=== PATIENT | female | born 1995 | race Caucasian/White ===

== ENCOUNTER 2017-04-18 17:14 | Emergency (ER) | payer BC ==
--- NOTE | 2017-04-18 18:29 | ER Document Report ---
ED Flu Like - General Chief Complaint: cold Stated Complaint: COUGHING, STUFFY NOSE Time Seen by Provider: 04/18/17 18:06 Mode of Arrival: Ambulatory Information source: Patient Notes: 22-year-old female presents to ED for cough congested stuffy/runny nose, fatigue , she denies any fever. States she does have some difficulty breathing at times but none at this time. Lungs are clear respirations regular even. Speaks in full sentences alert and oriented. States she has had a cough and cold symptoms for 2 days. States she was told by her doctor that she can only take Tylenol as she is 34 weeks with her first child. Last menstrual period was in August due dates May 28, 2017. TRAVEL OUTSIDE OF THE [place] IN LAST 30 DAYS: No - HPI Onset: Other - 2 days Timing/Duration: Intermittent Quality of pain: Achy, Sharp Severity: Moderate Pain Level: 4 CO exposure: No Associated symptoms: Nonproductive cough, Rhinnorhea, Sinus pain/drainage. 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 denies: COPD, CVA Patient has suicidal ideation: No Patient has homicidal ideation: No - Past Medical History Cardiac Medical History: Reports: None Pulmonary Medical History: Reports: Hx Asthma, Hx Bronchitis, Hx Pneumonia EENT Medical History: Reports: None Neurological Medical History: Reports: None Endocrine Medical History: Reports: None Renal/ Medical History: Reports: None Malignancy Medical History: Reports: None GI Medical History: Reports: Hx Gastroesophageal Reflux Disease, Hx Colonoscopy , Hx Endoscopy Musculoskeltal Medical History: Reports Hx Arthritis, Reports Hx Musculoskeletal Deformity, Reports Hx Musculoskeletal Trauma Skin Medical History: Reports None Psychiatric Medical History: Reports: Hx Anxiety, Hx Depression Traumatic Medical History: Reports: None Infectious Medical History: Reports: None Past Surgical History: Reports: Hx Oral Surgery, Hx Orthopedic Surgery - Immunizations Immunizations up to date: Yes Hx Diphtheria, Pertussis, Tetanus Vaccination: Yes Review of Systems - Review of Systems Constitutional: Recent illness EENT: Nose discharge, Sinus pressure, Sinus discharge Cardiovascular: No symptoms reported Respiratory: Cough Gastrointestinal: No symptoms reported Genitourinary: No symptoms reported Female Genitourinary: Musculoskeletal: No symptoms reported Skin: No symptoms reported Hematologic/Lymphatic: No symptoms reported Neurological/Psychological: No symptoms reported -: Yes All other systems reviewed and negative Physical Exam - Vital signs Vitals: Temp Pulse Resp BP Pulse Ox 98.9 F 104 H 20 150/87 H 98 04/18/17 17:19 04/18/17 17:19 04/18/17 17:19 04/18/17 17:19 04/18/17 17:19 Interpretation: Normal - General General appearance: Appears well, Alert - HEENT Head: Normocephalic, Atraumatic Eyes: Normal Pupils: PERRL Ears: Normal External canal: Normal Tympanic membrane: Normal Sinus: Normal Nasal: Purulent discharge, Swelling Mouth/Lips: Normal Mucous membranes: Normal Pharynx: Post nasal drainage Neck: Normal - Respiratory Respiratory status: No respiratory distress Chest status: Nontender Breath sounds: Nonproductive cough Chest palpation: Normal - Cardiovascular Rhythm: Regular Heart sounds: Normal auscultation Murmur: No - Abdominal Inspection: Gravid female Distension: No distension Bowel sounds: Normal Tenderness: Nontender Organomegaly: No organomegaly - Back Back: Normal, Nontender - Extremities General upper extremity: Normal inspection, Nontender, Normal color, Normal ROM , Normal temperature General lower extremity: Normal inspection, Nontender, Normal color, Normal ROM , Normal temperature, Normal weight bearing. No: Parul's sign - Neurological Neuro grossly intact: Yes Cognition: Normal Orientation: AAOx4 Kite Coma Scale Eye Opening: Spontaneous Tomi Coma Scale Verbal: Oriented Kite Coma Scale Motor: Obeys Commands Tomi Coma Scale Total: 15 Speech: Normal Motor strength normal: LUE, RUE, LLE, RLE Sensory: Normal - Psychological Associated symptoms: Normal affect, Normal mood - Skin Skin Temperature: Warm Skin Moisture: Dry Skin Color: Normal Course - Re-evaluation Re-evalutation: 04/18/17 18:43 Assessment consistent with an upper respiratory infection. Patient has a runny nose cough congestion. Ears are clear has a history of ear tubes in the past. Also has a history of left knee surgery and wisdom teeth removal. Patient is 34 weeks is not able to take anything but Tylenol for her cold. Patient has called her [employer] concerning her call and inform the know she cannot take any cold medicine. Patient was instructed to use nasal saline nose spray to help with her cold symptoms. Patient was treated with Tylenol while in the emergency room for her discomfort. Patient instructed to follow-up with her primary doctor. Patient's heart tones were 147. - Vital Signs Vital signs: Temp Pulse Resp BP Pulse Ox 98.2 F 96 20 136/86 H 99 04/18/17 18:32 04/18/17 18:32 04/18/17 17:19 04/18/17 18:32 04/18/17 18:32 Discharge - Discharge Clinical Impression: URI (upper respiratory infection) Qualifiers: URI type: unspecified URI Qualified Code(s): J06.9 - Acute upper respiratory infection, unspecified Condition: Stable Disposition: HOME, SELF-CARE Additional Instructions: UPPER RESPIRATORY ILLNESS: You have a viral infection of the respiratory passages -- a "cold." This common infection causes nasal congestion, drainage, and often sore throat and cough. It is highly contagious. The disease usually lasts about 10 to 14 days. There is no "cure" for the viral infection -- it must run its course. If there is a complication, such as bacterial infection in the nose, sinuses, middle ear, or bronchial tubes, antibiotics may be required. The antibiotics won't affect the virus. Drink plenty of fluids. A humidifier may help. An expectorant medication or decongestant may make you more comfortable. Use acetaminophen or ibuprofen for fever or aches. See the doctor if fever persists over two days, if there is any significant worsening of your symptoms, or if you simply fail to improve as expected. COUGH-SUPPRESSANT & EXPECTORANT MEDICATION: You are to use a cough medication as needed for relief of symptoms. This medicine is a combination of an expectorant (to make the mucous thinner and more easily "coughed up") and a cough suppressant (to reduce the frequency of coughing). The cough-suppressant medicine is related to narcotics. You may experience mild nausea and sleepiness. Some patients who are very sensitive to narcotics may have stomach pain from this medicine. Taking the medicine with food reduces these side effects. Do not drive or work with machinery until you know how this medicine affects you. The expectorant should have no side effects. Iodine-containing expectorants (such as organidin) should not be taken by persons with active thyroid disease unless approved by your doctor. Call the doctor if you develop shortness of breath, hives, rash, itching, lightheadedness, or severe nausea and vomiting. USE OF ACETAMINOPHEN (Tylenol): Acetaminophen may be taken for pain relief or fever control. It's much safer than aspirin, offering a wider range of "safe" dosages. It is safe during . Some brand names are Tylenol, Panadol, Datril, Anacin 3, Tempra, and Liquiprin. Acetaminophen can be repeated every four hours. The following are maximum recommended dosages: >89 pounds or adults 650 mg to 900 mg Acetaminophen can be repeated every four hours. Maximum dose not to exceed 4000 mg a day. FOLLOW-UP CARE: If you have been referred to a physician for follow-up care, call the physician s office for an appointment as you were instructed or within the next two days. If you experience worsening or a significant change in your symptoms, notify the physician immediately or return to the Emergency Department at any time for re-evaluation. Referrals: [facility] [Provider Group] - Follow up as needed
[2017-04-18 18:32] VITALS: BP 136/86
[2017-04-18] MEDS ORDERED: ACETAMINOPHEN 325 MG TABLET PO ONE (18:35)
== END 2017-04-18 18:50 | disposition home or self-care (01) ==
LOC: ER 17:14
DX: O99.513 Diseases of the respiratory system complicating pregnancy, third trimester (principal); J06.9 Acute upper respiratory infection, unspecified; J45.909 Unspecified asthma, uncomplicated; J34.89 Other specified disorders of nose and nasal sinuses; O26.893 Other specified pregnancy related conditions, third trimester; R05 Cough; R09.81 Nasal congestion; O26.813 Pregnancy related exhaustion and fatigue, third trimester; Z3A.34 34 weeks gestation of pregnancy; Z88.5 Allergy status to narcotic agent; Z87.891 Personal history of nicotine dependence
CPT/HCPCS: 99283

== ENCOUNTER → 2017-04-23 | Outpatient (CLI) | payer BC ==
--- NOTE | 2017-04-23 16:21 | XCELERA REPORT ---
[address] [address] Lower Extremity Venous Evaluation Name: CLEVE PINEDA Age: 22 yrs Gender: Female : 1995 Patient Status: Outpatient Patient Location: Study Date: 04/23/2017 08:40 AM Procedure: Color flow and duplex imaging of the veins of the right lower extremity as well as the left Common Femoral vein. Reason For Study: RLE PAIN Ordering Physician: KILO TSAI Performed By: Eli Oakley Right Sided Venous Evaluation Normal vessel filling wall to wall, compression and augmentation as well as Colour flow down to the infrageniculate veins. Left Sided Venous Evaluation The left common femoral vein is fully compressible. Spontaneous and phasic flow is present in the left common femoral vein. Interpretation Summary No duplex evidence of DVT or obstruction in the right lower extremity nor in the left Common Femoral vein. : KILO TSAI > Royer Khoury
== END ==
LOC: SP 08:29
PROVIDERS: ATTEND Student in an Organized Health Care Education/Training Program
DX: O26.893 Other specified pregnancy related conditions, third trimester (principal); M79.604 Pain in right leg; Z3A.00 Weeks of gestation of pregnancy not specified
CPT/HCPCS: 93971

== ENCOUNTER 2017-05-29 09:58 | Outpatient (CLI) | payer BC, MEDICAID ==
--- NOTE | 2017-05-29 10:36 | Non Stress Test Report ---
Non Stress Test Datetime Report Generated by CPN: 05/29/2017 10:36 INDICATION Indication for Study: Ordered by Provider MONITORING Monitor Explained: Monitor Explained; Test Explained; Patient Verbalized Understanding Time on Monitor: 05/29/2017 10:08 Time off Monitor: 05/29/2017 10:33 NST Duration: 25 NST INTERVENTIONS NST Interventions: None Physician Notified NST: Scott BABY A: [id number] BABY A Movement : Present Contraction Frequency : 0 FHR Baseline : 130 Accelerations : 15X15 Decelerations : None Variability : Moderate 6-25bpm NST Review: Meets Criteria for Reactive NST NST Review and Verified By : Singh St RN NST Results: Reactive NST REPORT Report Trigger: Send Report
--- NOTE | 2017-05-29 10:55 | RADIOLOGY REPORT (SQ) ---
EXAM DESCRIPTION: U/S OB LIMITED COMPLETED DATE/TIME: 05/29/2017 10:45 am REASON FOR STUDY: EDITA, IUP @ 40.1, post dates COMPARISON: None. TECHNIQUE: Limited transabdominal grayscale ultrasound for evaluation of specific requested obstetri kaylee parameters. LIMITATIONS: None. FINDINGS: CERVICAL LENGTH: Not applicable. Greater than 20 weeks. Need transvaginal study if indicat ed. Closed. EDITA: 8.8 cm. FHR: 140 beats per minute. PRESENTATION: Cephalic. OTHER: No other significant findings. IMPRESSION: LIMITED OBSTETRICAL ULTRASOUND WITH MEASURED PARAMETERS DELINEATED ABOVE. Trimester of : 3rd TECHNICAL DOCUMENTATION: JOB ID: [id number] [employer]- All Rights Reserved
== END 2017-05-29 11:04 | disposition home or self-care (01) ==
LOC: LC 09:58
PROVIDERS: ATTEND Obstetrics & Gynecology
PROC: 4A1HXCZ Monitoring of Products of Conception, Cardiac Rate, External Approach (ICD-10-PCS; principal; 2017-05-29)
DX: O48.0 Post-term pregnancy (principal); Z3A.40 40 weeks gestation of pregnancy
CPT/HCPCS: 59025; 76815

== ENCOUNTER 2017-06-01 01:41 | Inpatient (IN) | payer BC, MEDICAID ==
[2017-06-01 02:22] LABS: APPEARANCE,URINE SLIGHTLY-CLOUDY; BILIRUBIN,URINE NEGATIVE (NEGATIVE); GLUCOSE, URINE NEGATIVE (NEGATIVE); KETONES,URINE NEGATIVE (NEGATIVE); LEUKOCYTE ESTERASE,URINE NEGATIVE (NEGATIVE); NITRITE,URINE NEGATIVE (NEGATIVE); PROTEIN,URINE NEGATIVE (NEGATIVE); URINE SPECIFIC GRAVITY 1.017; UROBILINOGEN,URINE NEGATIVE mg/dL (<2.0)
[2017-06-01 02:26] LABS: AMNISURE (ROM) POSITIVE (NEGATIVE)
[2017-06-01] MEDS ORDERED: RINGERS SOLUTION,LACTATED 1,000 ML IV PRN (02:27)
[2017-06-01 03:00] LABS: ABSOLUTE EOSINOPHILS # (AUTO) 0.1 10^3/uL (0.0-0.6); ABSOLUTE LYMPHOCYTES (AUTO) 1.7 10^3/uL (0.5-4.7); ABSOLUTE MONOCYTES (AUTO) 0.8 10^3/uL (0.1-1.4); ABSOLUTE NEUT (AUTO) 7.6 10^3/uL (1.7-8.2); BASOPHILS % (AUTO) 0.2 % (0-2); EOSINOPHILS % (AUTO) 0.7 % (0-6); HEMATOCRIT 34.5 % (36.0-47.0); HEMOGLOBIN 11.7 g/dL (12.0-15.5); HGB HCT DIFFERENCE 0.6; LYMPHOCYTES % (AUTO) 16.6 % (13-45); MEAN CORPUSCULAR HEMOGLOBIN 28.5 pg (27.0-33.4); MEAN CORPUSCULAR HGB CONC 34.1 g/dL (32.0-36.0); MEAN CORPUSCULAR VOLUME 84 fl (80-97); RED BLOOD COUNT 4.12 10^6/uL (3.72-5.28); RED CELL DISTRIBUTION WIDTH 16.4 % (11.5-14.0); SEGMENTED NEUTROPHILS % (AUTO) 74.5 % (42-78); WHITE BLOOD COUNT 10.2 10^3/uL (4.0-10.5)
[2017-06-01 03:02] LABS: URINE BARBITURATES SCREEN NEGATIVE; URINE METHADONE SCREEN NEGATIVE; URINE OPIATES LOW NEGATIVE; URINE PHENCYCLIDINE SCREEN NEGATIVE
[2017-06-01] MEDS ORDERED: OXYTOCIN/NORMAL SALINE 0 UNIT/0 ML RTUINJ ONE (05:37)
[2017-06-01] MEDS ORDERED: OXYTOCIN/NORMAL SALINE 20 UNIT/1,000 ML RTUINJ IV PRN ×2 (05:41→18:22)
[2017-06-01] MEDS ORDERED: MISOPROSTOL 0.2 MG TABLET ONE (09:47)
[2017-06-01] MEDS ORDERED: EPHEDRINE SULFATE INJ 50 MG/1 ML AMPULE ONE (09:48)
[2017-06-01] MEDS ORDERED: FENTANYL/BUPIVACAINE/NS/PF 200 MCG/100 ML RTUINJ EPI ONE (09:48)
[2017-06-01] MEDS ORDERED: OXYTOCIN/NORMAL SALINE 20 UNIT/1,000 ML RTUINJ ONE (09:48)
[2017-06-01] MEDS ORDERED: BUPIVACAINE HCL 0.25 % INJ/PF (2.5 MG/1 ML) 30 ML VIAL ONE (09:48)
[2017-06-01] MEDS ORDERED: LIDOCAINE 1% INJ-PF (10 MG/ML) 30 ML SDV ONE (09:48)
[2017-06-01 11:18] LABS: CHLAM PCR NOT DETECTED (NOT DETECT)
--- NOTE | 2017-06-01 12:56 | L&D Progress Notes ---
PROGRESS NOTES Datetime Report Generated by CPN: 06/01/2017 12:56 PROGRESS NOTE Impression Other: multiple decels Procedures: Scalp Electrode; Sterile Vag Exam Plan: Continue Present Management Informed Consent Obtained: Risks, Benefits and Alternatives Discussed Vital Signs : Reviewed Vital Signs Comments: mild range with increased perineal pressure and position changes Comment: S: pt. with increased perineal pressure O: as stated above, pitocin stopped A: IUP @ 40w4d PROM- progressing, baby in OT position at this time, FSE placed without difficulty and tolerated well by baby and pt. P: will re-start pitocin in 45min with reassuring strip. Continue position changes. Dr. Zamora in unit and aware VAGINAL EXAM Dilatation: 6-7 Dilatation: 3 Effacement: 90 Effacement: 80 Station: -2 Station: 0 Contractions: irregular MEMBRANES Pooling: Positive Membranes: Ruptured Membranes: Ruptured Amniotic Fluid Color: Clear FETUS A Monitoring: External US : 40.4 Estimated Weight (gm): 3800 Presentation: Vertex SIGNATURE SIGNATURE: [id number];[id number] SIGNATURE: [id number] Assignment: Bonnie Zamora MD Signature: with User ID: [email or web address] : with User ID: [email or web address]
[2017-06-01] MEDS ORDERED: GENTAMICIN SULFATE INJ 80 MG/2 ML VIAL IM ONE (15:09)
[2017-06-01] MEDS ORDERED: GENTAMICIN SULFATE INJ 80 MG/2 ML VIAL IV ONE (15:09)
[2017-06-01] MEDS ORDERED: GENTAMICIN SULFATE INJ 80 MG/2 ML VIAL ONE (15:38)
[2017-06-01] MEDS ORDERED: AMPICILLIN SOD INJ 2 GM VIAL ONE (15:39)
[2017-06-01] MEDS ORDERED: LIDOCAINE 2% INJ-PF (20 MG/ML) 10 ML AMPUL ONE (16:53)
[2017-06-01] MEDS ORDERED: PROMETHAZINE HCL INJ 25 MG/1 ML VIAL IV PRN (18:22)
[2017-06-01] MEDS ORDERED: BENZOCAINE/MENTHOL AEROSOL SPRAY 56 ML TOP PRN (18:22)
[2017-06-01] MEDS ORDERED: PROMETHAZINE HCL 25 MG SUPP.RECT PR PRN (18:22)
[2017-06-01] MEDS ORDERED: DIPH/PERTUSS(ACELL)/TETANUS VAC/PF 0.5 ML SYR (>=10YO) IM PRN (18:22)
[2017-06-01] MEDS ORDERED: PSEUDOEPHEDRINE HCL 30 MG TABLET PO PRN (18:22)
[2017-06-01] MEDS ORDERED: NA PHOS,M-B/NA PHOS,DI-BA (ADULT) 133 ML ENEMA PR PRN (18:22)
[2017-06-01] MEDS ORDERED: PROMETHAZINE HCL 25 MG TABLET PO PRN (18:22)
[2017-06-01] MEDS ORDERED: MAGNESIUM HYDROXIDE SUSP 30 ML UDCUP PO PRN (18:22)
[2017-06-01] MEDS ORDERED: DIPHENHYDRAMINE HCL 25 MG CAPSULE PO PRN (18:22)
[2017-06-01] MEDS ORDERED: MEASLES,MUMPS&RUBELLA VACC/PF 0.5 ML VIAL SUBCUT PRN (18:22)
[2017-06-01] MEDS ORDERED: DIBUCAINE 1% OINTMENT 28 GM TP PRN (18:22)
[2017-06-01] MEDS ORDERED: GLYCERIN/WITCH HAZEL LEAF 1 EACH MED..PAD TP PRN (18:22)
--- NOTE | 2017-06-01 19:57 | Delivery Summary ---
Del Sum A-C Datetime Report Generated by CPN: 06/01/2017 19:57 DELIVERY PERSONNEL DELIVERY PERSONNEL: [id number] Delivery Doctor:: Latoya Gregory CNM Labor and Delivery Nurse:: Mary Lou Sauceda RN Student Observers:: Deandra Montague [facility] Student Process Safety Engineer/TURNTABLE ENGINEER: Janeth Alberto, ST Process Safety Engineer/TURNTABLE ENGINEER: Jenna Cain TURNTABLE ENGINEER II MATERNAL INFORMATION Delivery Anesthesia: Epidural Medications After Delivery: Pitocin Bolus-Please Comment; Pitocin Drip 20 Units/1000ml NSS Estimated Blood Loss (ml): 300 Maternal Complications: None Provider Comments: Pt. continued to feel strong urge to push and was found to be 9cm. A few contractions later, exam was done again and baby rotated-anterior and left cervical lip disappeared and pt progressed to c/c/+1 with strong urge to push and advanced to +2. table brought into room and pt. quickly delivered a viable baby girl with vigorous respiratory effort and cry spontaneously at . Baby placed on materna abdomen, cord allowed to stop pulsating then clamped x2 and cut by FOB (3vc noted, cord blood obtained). Placenta delivered spontaneously intact and vaginal and perineal inspection revealed lacerations as stated above. Mother and baby remain skin to skin and bonding at this time. Bleeding stable. LABOR SUMMARY EDC: 05/28/2017 00:00 No. Babies in Womb: 1 Attempted: No Labor Anesthesia: Epidural LABOR INFORMATION Reason for Induction: Premature Rupture of Membranes Onset of Labor: 05/31/2017 21:15 Complete Dilatation: 06/01/2017 17:34 Oxytocin: Augmentation Group B Beta Strep: Negative Antibiotics # of Doses: 0 Steroids Given: None Reason Steroids Not Administered: Not Applicable MEMBRANES Membranes Rupture Method: Spontaneous Rupture of Membranes: 05/31/2017 21:15 Length of Rupture (hr): 20.37 Amniotic Fluid Color: Clear Amniotic Fluid Amount: Small Amniotic Fluid Odor: Normal STAGES OF LABOR Stage 1 hr: 20 Stage 1 min: 19 Stage 2 hr: 0 Stage 2 min: 3 Stage 3 hr: 0 Stage 3 min: 5 Total Time in Labor hr: 20 Total Time in Labor min: 27 VAGINAL DELIVERY Episiotomy: None Other Laceration: Labial Laceration Repair: Yes Laceration Repair Note: bilateral labial tears noted and repaired in the usual fashion. left labial with 2-0 SH (hemostatic) and right labial with 2-[address] both hemostatic Sponge Count Correct: Yes Sharps Count Correct: Yes BABY A INFORMATION Infant Delivery Date/Time: 06/01/2017 17:37 Method of Delivery: Vaginal Born in Route : No : N/A Forceps: N/A Vacuum Extraction: N/A Shoulder Dystocia : No PRESENTATION/POSITION BABY A Presentation: Cephalic Cephalic Presentation: Vertex Vertex Position: Left Occipital Anterior Breech Presentation: N/A PLACENTA INFORMATION BABY A Placenta Delivery Time : 06/01/2017 17:42 Placenta Method of Delivery: Spontaneous Placenta Status: Delivered SCORES BABY A Heart Rate 1 min: >100 bpm Resp Effort 1 min: Slow, Irregular Reflex Irritability 1 min: Cough or Sneeze or Pulls Away Muscle Tone 1 min: Active Motion Color 1 min: Completely [place] Resuscitation Effort 1 min: N/A SCORE 1 MIN: 9 Heart Rate 5 min: >100 bpm Resp Effort 5 min: Slow, Irregular Reflex Irritability 5 min: Cough or Sneeze or Pulls Away Muscle Tone 5 min: Active Motion Color 5 min: Completely [place] Resuscitation Effort 5 min: N/A SCORE 5 MIN: 9 INFORMATION BABY A Gestational Age at Delivery: 40.4 Gestational Status: Full Term- 39- 40.6 Weeks Infant Outcome : Liveborn Condition : Stable Infant Sex: Female IDENTIFICATION BABY A Infant Verification Date/Time: 06/01/2017 18:16 ID Band Number: [id number] Mother's Name Verified: Yes RN Verifying Infant: KieraChelsea Rossiandrés, RN/ Priti Sauceda, PATRICIO WEIGHT/LENGTH BABY A Infant Birthweight (gm): 3380 Infant Weight (lb): 7 Weight (oz): 7 Infant Length (in): 21.50 Length (cm): 54.61 CORD INFORMATION BABY A No. Cord Vessels: 3 Nuchal Cord : N/A Cord Blood Taken: Yes-For Storage (Mom's Blood type +) Infant Suction: None ASSESSMENT BABY A Skin to Skin: Yes Skin to Skin Time (min): 60 BABY B INFORMATION : N/A SIGNATURES Assignment: Bonnie Zamora MD Signature: with User ID: [email or web address] : with User ID: [email or web address]
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
[2017-06-01] MEDS ORDERED: AMPICILLIN SOD INJ 2 GM VIAL IM SCH (21:00)
[2017-06-01] MEDS ORDERED: GENTAMICIN SULFATE INJ 80 MG/2 ML VIAL IV SCH (22:00)
[2017-06-01] MEDS: FAMOTIDINE 20 MG TABLET PO SCH (22:02)
[2017-06-01] MEDS: IBUPROFEN 800 MG TABLET PO SCH (22:03)
[2017-06-02] MEDS: IBUPROFEN 800 MG TABLET PO SCH ×3 (05:36→22:06)
[2017-06-02 08:18] LABS: HEMATOCRIT 32.5 % (36.0-47.0); HEMOGLOBIN 10.6 g/dL (12.0-15.5); HGB HCT DIFFERENCE -0.7; MEAN CORPUSCULAR HEMOGLOBIN 27.5 pg (27.0-33.4); MEAN CORPUSCULAR HGB CONC 32.7 g/dL (32.0-36.0); MEAN CORPUSCULAR VOLUME 84 fl (80-97); RED BLOOD COUNT 3.86 10^6/uL (3.72-5.28); RED CELL DISTRIBUTION WIDTH 17.2 % (11.5-14.0)
[2017-06-02] MEDS: PRENATAL VITAMIN W DHA CAPSULE PO SCH (11:07)
[2017-06-02] MEDS: FERROUS SULFATE 325 MG TABLET PO SCH ×2 (11:07→18:06)
[2017-06-02] MEDS: FAMOTIDINE 20 MG TABLET PO SCH ×2 (11:08→22:06)
[2017-06-02] MEDS: DOCUSATE SODIUM 100 MG CAPSULE PO SCH ×2 (11:08→18:06)
[2017-06-02] MEDS: SENNOSIDES/DOCUSATE 8.6-50 MG 1 EACH TABLET PO SCH (11:08)
--- NOTE | 2017-06-02 12:09 | PDOC PROGRESS REPORT ---
Subjective-OB Subjective: Post Delivery Day: 22 year old. complaining of pain at suture site, verified no tylenol allergy, pain is mild and pt is able to sit up. Reports without difficulty , bleeding diminishing, tolerating diet, voiding normally and passing gas. Physical Exam (OB) Vital Signs: Temp Pulse Resp BP Pulse Ox 97.6 F 97 18 141/86 H 100 06/02/17 09:49 06/02/17 09:49 06/02/17 09:49 06/02/17 09:49 06/02/17 09:49 Intake & Output 06/01/17 06/02/17 06/03/17 06:59 06:59 06:59 Weight 102.15 kg - Abdomen Description: Soft, Round Fundal Description: Firm, Midline Fundal Height: u/u - u/2 - Extremities Lower extremities: Parul's sign - neg Objective-Diagnostic Laboratory: 06/02/17 07:16 06/02/17 07:16 WBC 14.0 H RBC 3.86 Hgb 10.6 L Hct 32.5 L MCV 84 MCH 27.5 MCHC 32.7 RDW 17.2 H Plt Count 179 Assessment and Plan(PN) - Assessment and Plan (1) Normal vaginal delivery Is this a current diagnosis for this admission?: Yes - Time Spent with Patient Time with patient: Less than 15 minutes - Disposition Anticipated Discharge: Home Within: within 24 hours
[2017-06-02] MEDS ORDERED: ACETAMINOPHEN 325 MG TABLET ONE (12:53)
[2017-06-02] MEDS: ACETAMINOPHEN 325 MG TABLET PO PRN ×2 (12:55→23:40)
[2017-06-03] MEDS: IBUPROFEN 800 MG TABLET PO SCH ×2 (05:52→13:27)
[2017-06-03 08:39] VITALS: BP 126/87
[2017-06-03] MEDS: FAMOTIDINE 20 MG TABLET PO SCH (09:56)
[2017-06-03] MEDS: FERROUS SULFATE 325 MG TABLET PO SCH (09:56)
[2017-06-03] MEDS: SENNOSIDES/DOCUSATE 8.6-50 MG 1 EACH TABLET PO SCH (09:56)
[2017-06-03] MEDS: DOCUSATE SODIUM 100 MG CAPSULE PO SCH (09:56)
[2017-06-03] MEDS: PRENATAL VITAMIN W DHA CAPSULE PO SCH (09:56)
--- NOTE | 2017-06-03 10:15 | PDOC DISCHARGE SUMMARY ---
General - Admit/Disc Date/PCP Admission Date/Primary Care Provider: 06/01/17 02:33 BRISEIDA SCOTT MD Discharge Date: 06/03/17 - Discharge Diagnosis (1) Normal vaginal delivery Is this a current diagnosis for this admission?: Yes (2) Premature rupture of membranes Is this a current diagnosis for this admission?: Yes (3) Abnormal glucose affecting Is this a current diagnosis for this admission?: Yes - Additional Information Home Medications: Albuterol Sulfate [Proair HFA] 2 puff IN PRN 05/29/17 Vit,Calc76/Iron/Folic [Pnv 29-1 Tablet] 1 tab PO DAILY 05/29/17 Ranitidine HCl [Zantac] 300 mg PO PRN PRN 05/29/17 Ferrous Sulfate [Iron] 325 mg PO DAILY 06/01/17 History of Present Illness History of Present Illness: CLEVE PINEDA is a 22 year old female Physical Exam - Physical Exam Vital Signs: Temp Pulse Resp BP Pulse Ox 97.9 F 84 16 126/87 H 100 06/03/17 08:14 06/03/17 08:14 06/03/17 08:14 06/03/17 08:14 06/03/17 08:14 Intake & Output 06/02/17 06/03/17 06/04/17 06:59 06:59 06:59 Intake Total 810 Balance 810 Result Laboratory Results: 06/02/17 07:16
== END 2017-06-03 13:45 | disposition home or self-care (01) | DRG 775 ==
LOC: LC 01:41 → LR 02:33 → 2S 20:04
PROVIDERS: ADMIT Obstetrics & Gynecology; ATTEND Obstetrics & Gynecology
PROC: 10E0XZZ Delivery of Products of Conception, External Approach (ICD-10-PCS; principal; 2017-06-01)
PROC: 0UQMXZZ Repair Vulva, External Approach (ICD-10-PCS; 2017-06-01)
PROC: 4A1HXCZ Monitoring of Products of Conception, Cardiac Rate, External Approach (ICD-10-PCS; 2017-06-01)
PROC: 3E0234Z Introduction of Serum, Toxoid and Vaccine into Muscle, Percutaneous Approach (ICD-10-PCS; 2017-06-03)
DX: O42.02 Full-term premature rupture of membranes, onset of labor within 24 hours of rupture (principal); O99.814 Abnormal glucose complicating childbirth; O99.513 Diseases of the respiratory system complicating pregnancy, third trimester; J45.909 Unspecified asthma, uncomplicated; O99.344 Other mental disorders complicating childbirth; F32.9 Major depressive disorder, single episode, unspecified; F41.9 Anxiety disorder, unspecified; O99.02 Anemia complicating childbirth; D64.9 Anemia, unspecified; O70.0 First degree perineal laceration during delivery; O76 Abnormality in fetal heart rate and rhythm complicating labor and delivery; Z23 Encounter for immunization; Z88.6 Allergy status to analgesic agent; Z87.891 Personal history of nicotine dependence; Z37.0 Single live birth
CPT/HCPCS: 36415; 80307; 81005; 84112; 85025; 85027; 86592; 86850; 86900; 86901; 87491; 87591; 90715; J0290; J1580; J2590; J3490